=== PATIENT | male | born 1965 | race Caucasian/White ===

== ENCOUNTER 2016-12-01 12:48 | Outpatient (CLI) | payer OTHER | END 2016-12-01 12:49 | disposition home or self-care (01) | DX: N43.3 Hydrocele, unspecified (principal) ==

== ENCOUNTER 2017-05-29 11:23 | Outpatient (CLI) | payer OTHER | END 2017-05-29 11:24 | disposition home or self-care (01) | LOC: SC 11:23 | PROVIDERS: ATTEND Internal Medicine Pulmonary Disease | DX: G47.33 Obstructive sleep apnea (adult) (pediatric) (principal) | CPT/HCPCS: 99203; 99212 ==

== ENCOUNTER 2017-08-10 14:12 | Outpatient (CLI) | payer OTHER ==
[2017-08-10] MEDS ORDERED: IOTHALAMATE MEGLUMINE 50 ML VIAL ONE (14:28)
[2017-08-10] MEDS ORDERED: GADOPENTETATE DIMEGLUMINE 5 ML VIAL IVP ONE ×2 (14:28→15:14)
[2017-08-10] MEDS ORDERED: IOTHALAMATE MEGLUMINE 50 ML VIAL IVP ONE (15:14)
[2017-08-10] MEDS ORDERED: BUFFERED LIDOCAINE 10 ML SYRINGE IU ONE (15:14)
--- NOTE | 2017-08-10 17:00 | MRI Report ---
EXAM: LEFT SHOULDER MRI ARTHROGRAM WITH CONTRAST EXAM DATE: 08/10/2017 03:45 PM. CLINICAL HISTORY: Rotator cuff tear. Left shoulder injury one month ago. COMPARISON: None. TECHNIQUE: Multiplanar, multisequence T1-weighted and fluid-sensitive sequences of the shoulder after an arthrographic injection of dilute gadolinium, dictated under a separate exam. Other: None. FINDINGS: Acromioclavicular Region: The acromion is type II. There is moderate acromioclavicular joint osteoart hritis. There is slight narrowing of the subacromial space. There is no contrast or fluid in the suba cromial/subdeltoid bursa. Glenohumeral Region: No subluxation. No loose bodies. The articular cartilage is unremarkable. The gl enohumeral ligaments and joint capsule are unremarkable. Bone Marrow: No fracture, marrow edema or bone lesions. Labrum: The labrum is unremarkable. Biceps Tendon: Thickening and increased T2 signal in the proximal long head of biceps. Musculature/Rotator Cuff: There is thickening of the supraspinatus tendon consistent with tendinosis. Infraspinatus appears unremarkable. Subscapularis appears unremarkable. No edema or fatty atrophy. Other: The subcutaneous tissues are unremarkable. IMPRESSION: 1. Tendinosis of supraspinatus and the proximal long head of biceps. 2. Infraspinatus and subscapularis appear unremarkable. 3. No appreciable labral tear. [facility] MUSCULOSKELETAL RADIOLOGY SECTION Referring Provider Line: [phone] SITE ID: [id number]
--- NOTE | 2017-08-10 18:04 | XRAY Report ---
DATE OF SERVICE: 08/10/2017 LEFT SHOULDER INJECTION FOR MR ARTHROGRAM: 08/10/2017 CLINICAL INDICATION: Left shoulder pain. FINDINGS: Following obtaining informed consent, the patient's left shoulder was prepped and draped in the usual sterile fashion. The skin and soft tissues were anesthetized with lidocaine. A spinal needle was inserted into the left glenohumeral joint, and following confirmation of needle positioning, a combination of iodinated contrast, dilute gadolinium, and lidocaine was injected intraarticularly. The patient tolerated the procedure well. No immediate complications. Spot image reveals no evidence of contrast extravasation. IMPRESSION: SUCCESSFUL LEFT SHOULDER INJECTION FOR MR ARTHROGRAM. FLUOROSCOPY TIME: 42 SECONDS; 1 SPOT IMAGE OBTAINED. TD: 08/10/2017 19:02
== END 2017-08-10 14:13 | disposition home or self-care (01) ==
LOC: DI 14:12
PROVIDERS: ATTEND Physician Assistant Medical
DX: M67.912 Unspecified disorder of synovium and tendon, left shoulder (principal)
CPT/HCPCS: 23350; 73222; 77002; Q9961

== ENCOUNTER 2017-09-17 14:14 | Outpatient (CLI) | payer OTHER | END 2017-09-17 14:15 | disposition home or self-care (01) | LOC: SC 14:14 | PROVIDERS: ATTEND Nurse Practitioner Family | DX: G47.33 Obstructive sleep apnea (adult) (pediatric) (principal) | CPT/HCPCS: 99212; 99214 ==

== ENCOUNTER 2017-09-27 09:58 | Outpatient (CLI) | payer OTHER ==
--- NOTE | 2017-09-27 19:35 | MRI Report ---
EXAM: MRI LUMBAR SPINE WITHOUT CONTRAST EXAM DATE: 09/27/2017 10:46 AM. CLINICAL HISTORY: Pain in unspecified foot, low back pain. COMPARISON: None. TECHNIQUE: Multiplanar, multisequence T1-weighted and fluid-sensitive sequences of the lumbar spine f rom T12 to S1 without contrast. Other: None. FINDINGS: Spinal Cord: The conus terminates at L1-L2. The conus medullaris and cauda equina are unremarkable. Alignment: No scoliosis or spondylolisthesis. Bone Marrow: Five [id number] lumbar vertebral bodies are assumed. No gross fractures or bone les ions. No bone marrow edema. Disk Levels/Facets: T12-L1: Small endplate Schmorl's nodes. Negative for spinal canal stenosis or foraminal stenosis. L1-L2: Severe disk degeneration. Diffuse disk bulge. Negative for spinal canal stenosis or foraminal stenosis. L2-L3: Severe disk degeneration. Diffuse disk bulge osteophyte complex. Mild facet joint arthrosis. M ild bilateral foraminal stenosis from facet hypertrophy and disk bulge osteophyte complex. L3-L4: Posterior element hypertrophy. Mild facet joint arthrosis. Severe disk degeneration. Schmorl's node inferior L3 vertebral body endplate. Mild left foraminal stenosis from facet hypertrophy. Focal right foraminal 2 mm disk protrusion. Mild right foraminal stenosis from 2 mm foraminal disk protrus ion osteophyte complex and facet hypertrophy. L4-L5: Severe disk degeneration. Posterior element hypertrophy. Mild facet joint arthrosis. Left lami nectomy defect. Negative for spinal canal stenosis. Mild bilateral foraminal stenosis from facet hype rtrophy and disk degeneration. Mild right lateral recess stenosis from right posterolateral 2 mm disk protrusion osteophyte complex (image 10 series 301). L5-S1: Hypoplastic interspace. Negative for spinal canal stenosis or foraminal stenosis. Left sacroil iitis. Musculature: Normal. No edema or fatty atrophy. Other: The partially visualized retroperitoneum is unremarkable. IMPRESSION: 1. Negative for spinal canal stenosis or disk herniation. 2. Sacralization of L5. 3. Mild right L3-L4 foraminal stenosis from 2 mm foraminal disk protrusion osteophyte complex and fac et hypertrophy. 4. Mild right lateral recess stenosis L4-L5 from facet hypertrophy and right posterolateral 2 mm disk protrusion. 5. Severe disk degeneration L1-L5. Comment: The following findings are so common in adults without low back pain that while we report th eir presence, they must be interpreted with caution and in the context of the clinical situation. (Re kristie Sepulveda et al, Spine 2001) Prevalence of findings in patients without low back pain: Disk degeneration (any evidence): 92% Disk desiccation/T2 signal loss: 83% Disk height loss: 56% Disk bulge: 64% Disk protrusion: 32% Annular tear/high intensity zone: 38% [facility] Referring Provider Line: [phone] SITE ID: [id number]
== END 2017-09-27 09:59 | disposition home or self-care (01) ==
LOC: DI 09:58
PROVIDERS: ATTEND Family Medicine
DX: M51.26 Other intervertebral disc displacement, lumbar region (principal); M51.36 Other intervertebral disc degeneration, lumbar region; M47.896 Other spondylosis, lumbar region
CPT/HCPCS: 72148

== ENCOUNTER 2018-10-08 12:47 | Outpatient (CLI) | payer OTHER | END 2018-10-08 12:48 | disposition home or self-care (01) | LOC: SC 12:47 | PROVIDERS: ATTEND Nurse Practitioner Family | DX: G47.33 Obstructive sleep apnea (adult) (pediatric) (principal) | CPT/HCPCS: 99212; 99214 ==

== ENCOUNTER 2019-01-13 11:00 | Outpatient (CLI) | payer OTHER | END 2019-01-13 11:01 | disposition home or self-care (01) | LOC: SC 11:00 | PROVIDERS: ATTEND Internal Medicine Pulmonary Disease | DX: G47.33 Obstructive sleep apnea (adult) (pediatric) (principal) | CPT/HCPCS: 99212; 99213 ==

== ENCOUNTER 2023-07-06 10:22 | Outpatient (CLI) | payer OTHER ==
--- NOTE | 2023-07-06 11:17 | Sleep Patient Instructions ---
Sleep Center Visit Summary - Patient Visit Information Reason for Visit: Initial consultation with re-establishing patient - Patient Instructions Additional Instructions: You will continue with CPAP therapy with pressure set at 5-8 cmH2O. A supply prescription will be updated with your DME. We are ordering a verifying sleep study. We encourage you to continue to try to lose weight. Please follow up with the sleep care office after your sleep study. - Clinic Information Contact: [facility] [address] [place] [address] [email or web address] T: [phone]
--- NOTE | 2023-07-06 11:25 | SLEEP CARE CONSULTATION ---
Information from patient questionnaire entered by Valerie Mahmood. I have reviewed and concur with the information entered by Valerie Mahmood. This document represents the service I personally performed and the decisions made by me, Beatriz Lara ARNP. History of Present Illness Service Date and Time: 07/06/2023 1022 Reason for Visit: New patient, sleep apnea on CPAP therapy, Re-establish care Chief Complaint: reports: Other (REESTABLISH PATIENT STATUS) Usual bedtime: 830-930PM Time it takes to fall asleep: 10MIN Snores at night: Yes Observed to quit breathing while asleep: Yes Sleeps alone due to snoring: No Number of times waking at night: 1-2 Reasons for waking at night: reports: Bathroom Toss, Turn, or Twitch while sleeping: Yes Recalls having dreams: Yes Usually gets out of bed at: 5AM Feels refreshed in the morning: Yes Morning headache: No Sleepy or fatigued during the day: Yes Ever fallen asleep while driving: No Takes day naps: Yes Dreams during day naps: No Prior sleep studies: Yes Year and Where: [address] [facility] Additional HPI information: TRAN RASMUSSEN was lass seen in 02/2020 and was previously diagnosed to have mild, AHI 7.3 in 2018, obstructive sleep apnea-hypopnea syndrome and comes in today to re-establish care for CPAP therapy. - Parasomnia Symptoms Ever been unable to move upon waking from sleep: No Walks in sleep: No Talks in sleep: Yes Ever acted out dreams in sleep: Yes Ever felt weak in the knees when startled or emotional: No Bothered by creepy, crawly, restless sensations in legs: No Problems with memory or concentration: No CPAP Compliance Data - Data Reviewed with Patient Average duration of nightly device use: 7 hours 56 minutes Compliance rate %: 97 (88/90 days used) Current pressure setting (cmH2O): 5-8 Average residual AHI: 1.1 Central apnea: 0 Obstructive apnea: 0.9 Average large leak: 0.2 L/min Compliance data discussion: He has an Airsense 10 that was setup in 09/2018. He is with [employer] for his CPAP supplies with no issues. He is using a nasal cushion mask, Dreamwear. Subjective Missed days of use due to: reports: travel Patient concerns: reports: dry mouth, nose, throat (occasional). denies: aerophagia, mask discomfort, air blowing in eyes, mask leak noise, condensation in mask/hose, nasal congestion, epistaxis Observed to snore while using device: No Current pressure setting perceived as: comfortable On therapy, patient: reports: sleeping better, awakening more refreshed, being more awake and alert during the day, more rested overall. denies: drowsiness while driving Initial [place] Sleepiness Scale score: 12 (in 2017) Current [place] Sleepiness Scale score: 4 (07/06/23) Past Medical History Past Medical History: reports: Hypertension (well controlled), Diabetes Social History The patient's occupation is a [employer]. Patient is and lives in [place]. Have you smoked in the past 12 months: No Alcohol use: Yes Alcohol amount and frequency: 1-2 BEERS 2-3 DAYS A WEEK Caffeine use: No Family History Family history of sleep disordered breathing: Yes Family Hx Sleep Apnea: Mother: Snoring Allergies and Home Medications Known drug allergies: No Drug allergies reviewed: Yes Home medication list reviewed: Yes Allergy and home medication list: Allergies No Known Drug Allergies Allergy (Verified 07/06/23 10:27) Home Medications Amitriptyline [Elavil] See Rx Instructions .ROUTE .COMPLEX 07/06/23 [History] Cider Vinegar/Kelsi Root Xt [Apple Cider Vinegar-Kelsi Chw] See Rx Instructions .ROUTE .COMPLEX 07/06/23 [History] Immune Support See Rx Instructions .ROUTE .COMPLEX 07/06/23 [History] lisinopriL [Lisinopril] See Rx Instructions .ROUTE .COMPLEX 07/06/23 [History] metFORMIN [Glucophage] See Rx Instructions .ROUTE .COMPLEX 07/06/23 [History] Review of Systems Weight loss over past 5 years: 80, eating better and portion control Cardiovascular: reports: high blood pressure Gastrointestinal: denies: heartburn Neurological: denies: headaches Psychiatric: denies: anxiety, depression Ear/Nose/Throat: reports: wisdom teeth removed Physical Exam Vital signs obtained and entered by: VALERIE Hernandes MA Blood Pressure: 116/85 (LEFT ARM) Cuff size: regular Heart Rate: 104 O2 Saturation: 97 Height: 5 ft 10 in Weight: 205 lb 6.4 oz Body Mass Index: 29.5 BMI Classification: Overweight Heart: regular rate and rhythm Lungs: clear bilaterally Impression and Plan 1. Obstructive Sleep Apnea-Hypopnea Syndrome, mild, with good treatment compliance and good apnea control. On CPAP therapy, the patient has better sleep quality and is more rested overall. Patient has had a significant weight loss of 80 pounds in the last 2 years. He states he has been eating better and watching his portions. He says he went up to his property for a weekend where he was unable to use his CPAP and his told him he did not snore without the CPAP. He said he also woke up feeling refreshed. He is wondering if he still needs the CPAP. Because of his significant weight loss, I will order a sleep study to re-verify diagnosis and severity to determine if he still needs CPAP therapy. Patient has significant improvement of their sleep apnea and is satisfied with current CPAP therapy. Patient's apnea severity and rationale for treatment to reduce apnea, improve sleep quality and reduce cardiovascular and cerebrovascular events was reviewed. I also reviewed the benefit of consistent device use of CPAP for hypertension and diabetes. 2. Overweight, unspecified. Currently patients BMI is 29.5. He has lost 80 pounds in the last 2 years. Obesity increases the risk of apnea, CPAP pressure requirements and overall health risks especially cardiovascular and diabetes. Thus patient is advised to continue to try to lose weight. * Continue auto CPAP pressure at 5-8 cmH2O * PSG to re-verify diagnosis and severity due to significant weight loss * Update supply precription * Notify me if snoring with mask or feeling that the pressure is too much or too little * Attempt to lose weight * Call this office if any problems using CPAP * Return for follow up after sleep study, or sooner if concerns arise Counseling Topics: Weight loss health impact Prescriptions: Device supplies Plan: Re-Verifying PSG Visit Type: In Office Time Spent with Patient (minutes): 32 Provider Statement: I spent 100% of the Face to Face Visit with the patient with greater than 50% spent counseling the patient and coordination of care.
[2023-07-06 11:42] VITALS: BP 116/85; O2SAT 97
== END 2023-07-06 10:23 | disposition home or self-care (01) ==
LOC: SC 10:22
PROVIDERS: ATTEND Nurse Practitioner Family
DX: G47.33 Obstructive sleep apnea (adult) (pediatric) (principal); E11.9 Type 2 diabetes mellitus without complications; I10 Essential (primary) hypertension; E66.3 Overweight; Z68.29 Body mass index [BMI] 29.0-29.9, adult
CPT/HCPCS: 99203; 99212

== ENCOUNTER 2023-07-28 19:32 | Outpatient (CLI) | payer OTHER | END 2023-07-28 19:33 | disposition home or self-care (01) | LOC: SC 19:32 | PROVIDERS: ATTEND Nurse Practitioner Family | DX: G47.33 Obstructive sleep apnea (adult) (pediatric) (principal); E11.9 Type 2 diabetes mellitus without complications; I10 Essential (primary) hypertension | CPT/HCPCS: 95810 ==

== ENCOUNTER 2023-08-15 09:51 | Outpatient (CLI) | payer OTHER ==
--- NOTE | 2023-08-15 09:42 | SLEEP CARE CONSULTATION ---
Information from patient questionnaire entered by Valerie Mahmood. I have reviewed and concur with the information entered by Valerie Mahmood. This document represents the service I personally performed and the decisions made by , Beatriz Lara ARNP. History of Present Illness Service Date and Time: 08/15/2023 0940 Initial [place] Sleepiness Scale score: 12 (in 2017) Current [place] Sleepiness Scale score: 6 (08/15/23) Additional HPI information: TRAN RASMUSSEN returns via video appointment for follow up and results of the recently performed polysomnography. The patient was informed of the following findings: No significant sleep disordered breathing with an average AHI of 3.4 and lyn oxygen saturation of 89%. He had an elevated supine AHI at 11.2. I explained the pathophysiology behind obstructive sleep apnea. Patient does not have sleep apnea and was advised how weight gain could increase the risk of developing sleep apnea in the future. I strongly encouraged the patient to lose weight. Patient does not have significant sleep disordered breathing but has elevated AHI in supine position so advised positional therapy. Methods to achieve positional management therapy were discussed; such as, positioning with pillows, wearing a T-shirt with tennis balls sewn into the back or commercially available products. Patient has light snoring. Snoring can be reduced by weight loss. Weight loss is best achieved with diet consult. Patient instructed to contact PCP for referral. Snoring can also be treated with an oral appliance from a dentist. Advised to check insurance coverage. In addition, an ENT evaluation can be do to see if other treatment is indicated. Patient counseled not drink alcohol less than 4 hours before bedtime as it can increase snoring and apnea. Patient was cautioned about risks of drowsy driving until sleepiness symptoms resolve. Patient denies drowsy driving. Sleep Study - Results Type of Sleep Study: Polysomnography (COMPLETED 07/28/23) Prior sleep studies: Yes Year and Where: 2017 [facility] Polysomnography/Home Sleep Study results: IMPRESSION: The quality of the study is good. The patient had normal sleep efficiency. The sleep architecture was abnormal for sleep fragmentation and reduced amount of time spent in slow wave sleep (N3). Respiratory monitoring showed no significant sleep disordered breathing (AHI = 3.4) or hypoxia (lyn oxygen saturation of 89%). The few respiratory events occurred only during supine sleep (supine AHI = 11.2; non-supine = 0.00). Snore was light in intensity. There was no significant periodic leg movement of sleep. Cardiac rhythm was normal sinus rhythm without significant arrhythmia. No abnormal behavior (parasomnia) observed during the night. Allergies and Home Medications Known drug allergies: No Drug allergies reviewed: Yes Home medication list reviewed: Yes (no changes) Allergy and home medication list: Allergies No Known Drug Allergies Allergy Review of Systems Review of systems same as previous: Yes (NO CHANGE) Physical Exam Vital signs obtained and entered by: VALERIE Hernandes MA Height: 5 ft 10 in (PER PT) Weight: 200 lb (PER PT) Body Mass Index: 28.7 BMI Classification: Overweight Impression and Plan 1. Snoring but no significant sleep disordered breathing. Patient completed verifying diagnostic sleep study which showed no significant sleep disordered br eathing, however he still does have elevated AHI when sleeping supine. He was happy to hear the results and will be avoiding sleeping supine. Patient advised that continued weight loss will reduce snoring as well as apnea risk. An oral appliance can also be used for snoring. This would require a dental consultation. Patient cautioned not to use other online appliances as can cause bite issues. Patient is advised to check if insurance will cover. An ENT consult can also be helpful to determine if any other treatment is an option. 2. Overweight, unspecified. Currently patients BMI is 28.7. Obesity increases the risk of apnea, CPAP pressure requirements and overall health risks especially cardiovascular and diabetes. Thus patient is advised to continue to try to lose weight. * Discontinue CPAP machine * Avoid sleeping supine due to elevated supine AHI * Continue to try to lose weight * Avoid alcohol consumption near bedtime * Return as needed for follow up. Counseling Topics: Weight loss health impact Follow up with Sleep Care in: as needed Visit Type: Telehealth Video Video Type: DoxOncoscope Patient Location: Home Location of Provider: Office Patient agrees and consents to this telehealth visit type: Yes Patient agrees to have their insurance billed: Yes Time Spent with Patient (minutes): 16 Provider Statement: I spent 100% of the Telehealth Video Call with the patient with greater than 50% spent counseling the patient and coordination of care.
== END 2023-08-15 09:52 | disposition home or self-care (01) ==
LOC: SC 09:51
PROVIDERS: ATTEND Nurse Practitioner Family
DX: R06.83 Snoring (principal); E66.3 Overweight; Z68.28 Body mass index [BMI] 28.0-28.9, adult